=== PATIENT | female | born 1995 | race African-American/Black ===

== ENCOUNTER 2022-05-23 21:35 | Emergency (ER) | payer BC ==
[2022-05-24 00:48] LABS: HIV (1/2) Antibody/Antigen Non-Reactive (NonReactive); HIV 1/2 INDEX 0.14 S/CO (<1.00); Hep C IgG Ab Non-Reactive (NonReactive); Hep C Index 0.16 S/CO (0-0.79)
[2022-05-24 00:55] LABS: HBSAB Concentration 246.26 mIU/mL; Hep B Surf AB Reactive (NonReactive)
== END 2022-05-23 22:03 | disposition home or self-care (01) ==
LOC: ERS 21:35
DX: S61.231A Puncture wound without foreign body of left index finger without damage to nail, initial encounter (principal); W27.3XXA Contact with needle (sewing), initial encounter
CPT/HCPCS: 36415; 99283